=== PATIENT | female | born 1965 | race Caucasian/White ===

== ENCOUNTER 2019-04-20 17:52 | Emergency (ER) | payer BC, OTHER ==
[2019-04-20] MEDS ORDERED: Sodium Chloride 0.9% 1,000 ML IV ONE (18:10)
--- NOTE | 2019-04-20 18:30 | EDM.PDOC ---
ED HPI GENERAL MEDICAL PROBLEM - General Chief Complaint: Abdominal Pain Stated Complaint: severe abdominal pain RLQ, LLQ with vomiting and low grade fever Time Seen by Provider: 04/20/19 18:25 Source of Information: Reports: Patient, RN History Limitations: Reports: No Limitations - History of Present Illness INITIAL COMMENTS - FREE TEXT/NARRATIVE: She developed abdominal pain Friday. She started by throwing up and then developed a low grade fever. She denies body aches. She has had chills especially when she throws up. She did not eat yesterday; had a little jello and became sick. Her vomit seems to be bilious. Tylenol helps the pain a little. She had 2 loose stools this morning and a couple of other loose stools. Lying still improves her pain, movement makes it worse. Pain is worse on the right side. She is on Ativan, Buspar and metoprolol but has not been able to keep it down. Eating and moving makes the pain worse; lying completely still helps the pain somewhat. She denies body aches or any other symptoms. Onset: Sudden Onset Date: 04/18/19 Location: Reports: Abdomen Quality: Reports: Burning, Sharp Severity: Severe Improves with: Reports: Immobilization Worsens with: Reports: Eating, Movement Associated Symptoms: Reports: Fever/Chills, Loss of Appetite, Nausea/Vomiting Treatments FL[employer] D[employer]ER: Reports: Acetaminophen Abdomen Pain Score (Numeric/FACES): 10 - Related Data Allergies Allergy/AdvReac Type Severity Reaction Status Date / Time rofecoxib [From Vioxx] Allergy Cannot Verified 04/20/19 18:14 Remember Sulfa (Sulfonamide Allergy Cannot Verified 04/20/19 18:14 Antibiotics) Remember Home Meds: Home Meds LORazepam [Ativan] 0.25 mg PO BID PRN 04/20/19 [History] Metoprolol Succinate [[place] Sprinkle] 25 mg PO DAILY 04/20/19 [History] busPIRone [Buspar] 7.5 mg PO DAILY 04/20/19 [History] Past Medical History Cardiovascular History: Reports: Other (See Below) Other Cardiovascular History: mitral valve prolapse Psychiatric History: Reports: Anxiety, Depression - Past Surgical History Female Surgical History: Reports: Section, Tubal Ligation Social & Family History - Family History Family Medical History: Noncontributory - Tobacco Use Smoking Status *Q: Never Smoker - Recreational Drug Use Recreational Drug Use: No ED ROS GENERAL - Review of Systems Review Of Systems: See Below Constitutional: Reports: Fever, Chills, Decreased Appetite HEENT: Reports: No Symptoms Respiratory: Reports: No Symptoms Cardiovascular: Reports: No Symptoms Endocrine: Reports: No Symptoms GI/Abdominal: Reports: Abdominal Pain : Reports: No Symptoms Musculoskeletal: Reports: No Symptoms Skin: Reports: No Symptoms Neurological: Reports: No Symptoms Psychiatric: Reports: No Symptoms Hematologic/Lymphatic: Reports: No Symptoms Immunologic: Reports: No Symptoms ED EXAM, GI/ABD - Physical Exam Exam: See Below Text/Narrative:: Female who is in obvious distress; lying quietly on cart. Color pink, warm and dry. Exam Limited By: No Limitations General Appearance: Alert Eyes: Bilateral: Normal Appearance Ears: Normal External Exam Nose: Normal Inspection Throat/Mouth: Normal Inspection, Normal Oropharynx, Normal Voice, No Airway Compromise Head: Atraumatic, Normocephalic Neck: Normal Inspection Respiratory/Chest: No Respiratory Distress, Lungs Clear Cardiovascular: Regular Rate, Rhythm, No Edema, No Murmur GI/Abdominal Exam: Normal Bowel Sounds, Distended, Guarding, Rebound (Female) Exam: Deferred Rectal (Female) Exam: Deferred Extremities: No Pedal Edema Neurological: Alert, Oriented, Normal Cognition Skin Exam: Warm, Dry, Intact Lymphatic: No Adenopathy Course - Vital Signs Last Recorded V/S: Last Vital Signs Temp 100 F 04/20/19 20:29 Pulse 76 04/20/19 21:50 Resp 16 04/20/19 21:50 BP 139/77 04/20/19 21:50 Pulse Ox 97 04/20/19 21:50 - Orders/Labs/Meds Labs: Laboratory Tests 04/20/19 04/20/19 04/20/19 Range/Units 18:24 18:32 18:32 WBC 17.0 H (4.0-10.0) x10^3/uL RBC 5.37 (4.00-5.50) x10^6/uL Hgb 15.5 (12.0-16.0) g/dL Hct 45.1 (33.0-47.0) % MCV 84.0 (78.0-93.0) fL MCH 28.9 (26.0-32.0) pg MCHC 34.4 (32.0-36.0) g/dL RDW Coeff of Lei 13.1 (10.0-15.0) % Plt Count 156 (130-400) x10^3/uL Neut % (Auto) 93.0 H (50.0-80.0) % Lymph % (Auto) 3.9 L (25.0-50.0) % [place] % (Auto) 2.8 (2.0-11.0) % Eos % (Auto) 0.1 (0.0-4.0) % Baso % (Auto) 0.2 (0.2-1.2) % Sodium 140 (69-191) mmol/L Potassium 3.6 (1.5-9.9) mmol/L Chloride 100 (54-184) mmol/L Carbon Dioxide 23 (21-32) mmol/L Anion Gap 20.6 H (10-20) mmol/L BUN 14 (7-18) mg/dL Creatinine 0.6 (0.55-1.02) mg/dL Est Cr Clr Drug Dosing 95.33 mL/min Estimated GFR (MDRD) > 60 Glucose 138 H (74-106) mg/dL Lactic Acid (0.4-2.0) mmol/L Calcium 9.3 (8.5-10.1) mg/dL Corrected Calcium 9.86 (8.5-10.1) mg/dL Total Bilirubin 1.9 H (0.2-1.0) mg/dL AST 27 (15-37) U/L ALT 20 (14-59) U/L Alkaline Phosphatase 123 H (46-116) U/L C-Reactive Protein 25.2 H (<=0.9) mg/dL Total Protein 8.4 H (6.4-8.2) g/dL Albumin 3.3 L (3.4-5.0) g/dL Globulin 5.1 Albumin/Globulin Ratio 0.65 Lipase 146 (73-393) U/L Urine Color Pinky H (YELLOW) Urine Appearance Clear (CLEAR) Urine pH 6.0 (5.0-8.0) Ur Specific [place] 1.015 Urine Protein 100 H (NEGATIVE) mg/dL Urine Glucose (UA) 100 H (NEGATIVE) mg/dL Urine Ketones >=160 H (NEGATIVE) mg/dL Urine Occult Blood Trace-lysed H (NEGATIVE) Urine Nitrite Negative (NEGATIVE) Urine Bilirubin Small H (NEGATIVE) Urine Urobilinogen 0.2 (0.2) EU/dL Ur Leukocyte Esterase Negative (NEGATIVE) Urine RBC 0-5 (NOT SEEN) /HPF Urine WBC 0-5 (NOT SEEN) /HPF Ur Squamous Epith Cells Few H (NEGATIVE) /HPF Urine Bacteria Few H (NEGATIVE) /HPF Urine Mucus Many H (NEGATIVE) /LPF 04/20/19 Range/Units 20:56 WBC (4.0-10.0) x10^3/uL RBC (4.00-5.50) x10^6/uL Hgb (12.0-16.0) g/dL Hct (33.0-47.0) % MCV (78.0-93.0) fL MCH (26.0-32.0) pg MCHC (32.0-36.0) g/dL RDW Coeff of Lei (10.0-15.0) % Plt Count (130-400) x10^3/uL Neut % (Auto) (50.0-80.0) % Lymph % (Auto) (25.0-50.0) % [place] % (Auto) (2.0-11.0) % Eos % (Auto) (0.0-4.0) % Baso % (Auto) (0.2-1.2) % Sodium (69-191) mmol/L Potassium (1.5-9.9) mmol/L Chloride (54-184) mmol/L Carbon Dioxide (21-32) mmol/L Anion Gap (10-20) mmol/L BUN (7-18) mg/dL Creatinine (0.55-1.02) mg/dL Est Cr Clr Drug Dosing mL/min Estimated GFR (MDRD) Glucose (74-106) mg/dL Lactic Acid 1.6 (0.4-2.0) mmol/L Calcium (8.5-10.1) mg/dL Corrected Calcium (8.5-10.1) mg/dL Total Bilirubin (0.2-1.0) mg/dL AST (15-37) U/L ALT (14-59) U/L Alkaline Phosphatase (46-116) U/L C-Reactive Protein (<=0.9) mg/dL Total Protein (6.4-8.2) g/dL Albumin (3.4-5.0) g/dL Globulin Albumin/Globulin Ratio Lipase (73-393) U/L Urine Color (YELLOW) Urine Appearance (CLEAR) Urine pH (5.0-8.0) Ur Specific [place] Urine Protein (NEGATIVE) mg/dL Urine Glucose (UA) (NEGATIVE) mg/dL Urine Ketones (NEGATIVE) mg/dL Urine Occult Blood (NEGATIVE) Urine Nitrite (NEGATIVE) Urine Bilirubin (NEGATIVE) Urine Urobilinogen (0.2) EU/dL Ur Leukocyte Esterase (NEGATIVE) Urine RBC (NOT SEEN) /HPF Urine WBC (NOT SEEN) /HPF Ur Squamous Epith Cells (NEGATIVE) /HPF Urine Bacteria (NEGATIVE) /HPF Urine Mucus (NEGATIVE) /LPF Meds: Medications Discontinued Medications Generic Name Dose Route Start Last Admin Trade Name Freq PRN Reason Stop Dose Admin Diphenhydramine HCl 50 mg 04/20/19 19:22 04/20/19 19:28 Benadryl IVPUSH 04/20/19 19:23 Not Given ONETIME ONE Famotidine 20 mg 04/20/19 19:24 04/20/19 19:28 Pepcid IVPUSH 04/20/19 19:25 Not Given ONETIME ONE Hydromorphone HCl 1 mg 04/20/19 21:03 04/20/19 21:14 Dilaudid IVPUSH 04/20/19 21:04 1 mg ONETIME ONE Administration Sodium Chloride 1,000 mls @ 999 mls/hr 04/20/19 18:10 04/20/19 18:10 Normal Saline IV 04/20/19 19:10 999 mls/hr ONETIME ONE Administration Iopamidol 100 ml 04/20/19 19:06 04/20/19 19:27 Isovue-300 (61%) IVPUSH 04/20/19 19:07 100 ml ONETIME ONE Administration Ondansetron HCl Confirm 04/20/19 21:17 04/20/19 21:17 Zofran Administered 04/20/19 21:18 4 mg Dose Administration 4 mg .ROUTE .STK-MED ONE Ondansetron HCl 4 mg 04/20/19 21:14 04/21/19 01:04 Zofran IVPUSH 04/20/19 21:15 Not Given ONETIME ONE Departure - Departure Time of Disposition: 21:06 Disposition: DC/Tfer to Acute Hospital 02 Condition: Serious Clinical Impression: Small bowel obstruction - Discharge Information *PRESCRIPTION DRUG MONITORING PROGRAM REVIEWED*: Not Applicable *COPY OF PRESCRIPTION DRUG MONITORING REPORT IN PATIENT SUSAN: Not Applicable Referrals: PCP,Unknown [Primary Care Provider] - Forms: ED Department Discharge ED Communication - Discussed Case With (1) Person/s Notified (1): Dr. Lee - Problem List Review Problem List Initiated/Reviewed/Updated: Yes
[2019-04-20 19:02] LABS: CHLORIDE,CL 100 mmol/L (54-184); SODIUM,NA 140 mmol/L (69-191)
[2019-04-20 19:05] LABS: ANION GAP 20.6 mmol/L (10-20)
[2019-04-20] MEDS ORDERED: Iopamidol 612 MG/ML 100 ML Bottle IVPUSH ONE (19:06)
[2019-04-20] MEDS ORDERED: diphenhydrAMINE 50 MG/ML SDV IVPUSH ONE (19:22)
[2019-04-20] MEDS ORDERED: Famotidine 20 MG/2 ML SDV IVPUSH ONE (19:24)
--- NOTE | 2019-04-20 20:29 | CT ---
[id number] CT/CT Abdomen Pelvis W IV EXAM: CT Abdomen Pelvis W IV CLINICAL DATA: RIGHT LOWER QUADRANT ABDOMINAL PAIN COMPARISON: NO PREVIOUS SIMILAR EXAM IS AVAILABLE. FINDINGS: There is evidence of a small bowel obstruction Report was called at the time of the dictation There is significant thickening of the wall of the small bowel Surgical consultation is suggested There is no free air There is a small amount of free fluid The liver and spleen, kidneys and adrenals, pancreas and aorta are unremarkable There is no pneumatosis intestinalis or portal venous air. There is no evidence of appendicitis. The pelvis shows no mass or adenopathy IMPRESSION: SMALL BOWEL OBSTRUCTION Luis M Lobato MD 04/20/192027 Thank you for allowing us to participate in the care of your patient.
[2019-04-20] MEDS ORDERED: HYDROmorphone 1 MG/ML Syringe IVPUSH ONE (21:03)
[2019-04-20] MEDS ORDERED: Ondansetron 4 MG/2 ML SDV IVPUSH ONE (21:14)
[2019-04-20] MEDS ORDERED: Ondansetron 4 MG/2 ML SDV ONE (21:17)
== END 2019-04-20 22:20 | disposition short-term general hospital (02) ==
LOC: VM.ED 17:52
DX: K56.609 Unspecified intestinal obstruction, unspecified as to partial versus complete obstruction (principal); F41.9 Anxiety disorder, unspecified; Z88.6 Allergy status to analgesic agent; Z88.2 Allergy status to sulfonamides; Z79.899 Other long term (current) drug therapy
CPT/HCPCS: 36415; 74177; 80053; 81001; 83605; 83690; 85025; 86140; 96360; 96361; 99285; J1170; J2405; J7030; Q9967

== ENCOUNTER 2025-05-31 13:44 | Emergency (ER) | payer MEDICARE, OTHER, MEDICAID ==
[2025-05-31 14:02] LABS: APPEARANCE,URINE SLIGHTLY CLOUDY (CLEAR); GLUCOSE,URINE NEGATIVE (NEGATIVE); OCCULT BLOOD,URINE TRACE-LYSED (NEGATIVE)
[2025-05-31 14:10] LABS: SQUAMOUS EPITHELIAL CELLS,UR FEW /HPF (NOT SEEN)
== END 2025-05-31 15:00 | disposition home or self-care (01) ==
LOC: VM.ED 13:44
DX: N39.0 Urinary tract infection, site not specified (principal); E78.00 Pure hypercholesterolemia, unspecified; Z88.8 Allergy status to other drugs, medicaments and biological substances; Z88.2 Allergy status to sulfonamides; Z88.1 Allergy status to other antibiotic agents; Z79.899 Other long term (current) drug therapy; Z86.16 Personal history of COVID-19
CPT/HCPCS: 81001; 87086; 99283; 99284